=== PATIENT | female | born 1970 | race Caucasian/White ===

== ENCOUNTER 2022-05-28 05:37 | Observation (INO) ==
[2022-05-28] MEDS ORDERED: Lactated Ringers 1000 ml BAG 1,000 ML IV SCH (06:00)
[2022-05-28] MEDS ORDERED: Famotidine IV 10 MG/ML 2 ml VIAL (20 mg) IV ONE (06:00)
[2022-05-28] MEDS ORDERED: Buffered Lidocaine 1% SYRIN 1 ml INTRADERM ONE ×2 (06:00→06:04)
[2022-05-28] MEDS ORDERED: Famotidine IV 10 MG/ML 2 ml VIAL (20 mg) ONE (06:04)
[2022-05-28] MEDS ORDERED: ceFAZolin 2 GM PREMIX 2 GM/50 ML BAG ONE (06:04)
[2022-05-28] MEDS ORDERED: ROPIVACAINE 5 MG/ML 30 ML BTL (0.5%) ONE ×2 (07:02→07:08)
[2022-05-28] MEDS ORDERED: fentaNYL 100 mcg/2 ml 50 MCG/ML VIAL ONE ×2 (07:07→07:16)
[2022-05-28] MEDS ORDERED: Lidocaine 2% PF 5 ML VIAL ONE (07:07)
[2022-05-28] MEDS ORDERED: Midazolam 5 mg/5 ml VIAL 1 mg/ml 5 ml VIAL (5 mg) ONE (07:07)
[2022-05-28] MEDS ORDERED: Propofol 10 MG/ML 20 ML BTL ONE ×2 (08:11→09:15)
[2022-05-28] MEDS ORDERED: Dexamethasone IV 4 MG/ML VIAL 1 ml VIAL ONE (08:36)
[2022-05-28] MEDS ORDERED: Ondansetron 4 mg VIAL 2 MG/ML 2 ml VIAL ONE (08:36)
[2022-05-28] MEDS ORDERED: Lactulose 30 ml UDC PO PRN (09:09)
[2022-05-28] MEDS ORDERED: Magnesium Hydroxide LIQ 30 ML UDC PO PRN (09:09)
[2022-05-28] MEDS ORDERED: Ondansetron ODT 4 mg TAB 4 MG TAB PO PRN (09:09)
[2022-05-28] MEDS ORDERED: Ondansetron 4 mg VIAL 2 MG/ML 2 ml VIAL IV PRN (09:09)
[2022-05-28] MEDS ORDERED: Morphine 2 MG/ML SYRINGE IV PRN (09:09)
[2022-05-28] MEDS ORDERED: Acetaminophen IV 1 GM/100ML 0 MG/0 ML BAG IV ONE (09:22)
[2022-05-28] MEDS ORDERED: Naloxone 0.4 mg VIAL 0.4 mg/ml 1 ml VIAL IV PRN (10:31)
[2022-05-28] MEDS ORDERED: fentaNYL 100 mcg/2 ml 50 MCG/ML VIAL IV PRN (10:31)
[2022-05-28] MEDS ORDERED: Dextrose 50% Syringe 50 ml 25 GM/50 ML SYRINGE IV PUSH PRN (11:08)
[2022-05-28] MEDS: Lactated Ringers 1000 ml BAG 1,000 ML IV SCH ×2 (12:40→23:03)
[2022-05-28] MEDS: ceFAZolin 1 GM ADVAN 1 GM in NS 0.9% 50 ML 50 ML IVPB SCH (16:05)
[2022-05-28] MEDS ORDERED: Insulin GLARGINE 100 un/ml 10 ml VIAL SUBCUT SCH (21:00)
[2022-05-28] MEDS: Magnesium Hydroxide LIQ 30 ML UDC PO SCH (21:17)
[2022-05-29] MEDS: ceFAZolin 1 GM ADVAN 1 GM in NS 0.9% 50 ML 50 ML IVPB SCH ×2 (00:14→08:06)
[2022-05-29 06:00] LABS: Hematocrit 31 % (35-47); Hemoglobin 10.3 g/dL (12.0-16.0); Mean Platelet Volume 8.1 fL (7.4-10.4); Platelet Count 204 10^3/uL (150-450)
[2022-05-29 06:29] LABS: Calcium 8.9 mg/dL (8.6-10.3); Potassium 4.6 mmol/L (3.5-5.0); eGFR CKD-EPI 104.8 (>60)
[2022-05-29] MEDS: Magnesium Hydroxide LIQ 30 ML UDC PO SCH (08:08)
[2022-05-29] MEDS ORDERED: Vitamin THERAPEUTIC TAB PO SCH (09:00)
[2022-05-29 11:29] VITALS: BP 111/60
== END 2022-05-29 12:15 | disposition home or self-care (01) ==
LOC: SSU → AA 05:37 → INTOOBSV 05:37
PROVIDERS: ADMIT Orthopaedic Surgery Adult Reconstructive Orthopaedic Surgery; ATTEND Orthopaedic Surgery Adult Reconstructive Orthopaedic Surgery

== ENCOUNTER 2024-03-15 05:34 | Observation (INO) ==
[~2024-03-15 05:34] MED LIST: NS 0.45% 1000 ml BAG 1,000 ML IV SCH; Naloxone 0.4 mg VIAL 0.4 mg/ml 1 ml VIAL IV PRN; Ondansetron 4 mg VIAL 2 MG/ML 2 ml VIAL IV PRN; fentaNYL 100 mcg/2 ml 50 MCG/ML VIAL IV PRN
[2024-03-15] MEDS: Buffered Lidocaine 1% SYRIN 1 ml INTRADERM ONE (06:00)
[2024-03-15] MEDS ORDERED: Tranexamic Acid 1 GM/100ML BAG 2,000 MG/200 ML BAG IV ONE (06:05)
[2024-03-15] MEDS ORDERED: Scopolamine 1 mg/72hr PATCH ONE (06:05)
[2024-03-15] MEDS ORDERED: ceFAZolin 2 GM PREMIX 2 GM/50 ML BAG ONE (06:05)
[2024-03-15] MEDS: Scopolamine 1 mg/72hr PATCH TRANSDERM ONE (06:26)
[2024-03-15 06:32] LABS: Rapid COVID-19 Molecular Undetected (Undetected)
[2024-03-15] MEDS ORDERED: Dexamethasone IV 4 MG/ML VIAL 1 ml VIAL ONE (06:47)
[2024-03-15] MEDS ORDERED: ROPIVACAINE 5 MG/ML 30 ML BTL (0.5%) ONE ×2 (06:47→06:52)
[2024-03-15] MEDS ORDERED: Midazolam 5 mg/ml concentrated 5 mg/ml 1 ml VIAL ONE (06:47)
[2024-03-15] MEDS: Lactated Ringers 1000 ml BAG 1,000 ML IV SCH ×2 (07:20→12:09)
[2024-03-15] MEDS ORDERED: Propofol 10 MG/ML 20 ML BTL ONE ×3 (07:42→09:47)
[2024-03-15] MEDS ORDERED: Lidocaine 2% PF 5 ML VIAL ONE (07:45)
[2024-03-15] MEDS ORDERED: Phenylephrine IV 10 MG/ML 1 ml VIAL ONE (07:51)
[2024-03-15] MEDS ORDERED: Lactulose 30 ml UDC PO PRN (10:16)
[2024-03-15] MEDS ORDERED: Ondansetron 4 mg VIAL 2 MG/ML 2 ml VIAL IV PRN (10:16)
[2024-03-15] MEDS ORDERED: Magnesium Hydroxide LIQ 30 ML UDC PO PRN (10:16)
[2024-03-15] MEDS ORDERED: Calcium Carb (TUMS) 500 mg CHEW TAB PO PRN (10:16)
[2024-03-15] MEDS ORDERED: Morphine 2 MG/ML SYRINGE IV PRN (10:16)
[2024-03-15] MEDS ORDERED: Ondansetron ODT 4 mg TAB 4 MG TAB PO PRN (10:16)
[2024-03-15] MEDS: Acetaminophen IV 1 GM/100ML 1,000 MG/100 ML BAG IV ONE (12:34)
[2024-03-15] MEDS: ceFAZolin 2 GM PREMIX 2 GM/50 ML BAG IV SCH (16:04)
[2024-03-15 17:39] VITALS: BP 148/97
[2024-03-15] MEDS ORDERED: Magnesium Hydroxide LIQ 30 ML UDC PO SCH (21:00)
[2024-03-16] MEDS ORDERED: Vitamin THERAPEUTIC TAB PO SCH (09:00)
== END 2024-03-15 17:18 | disposition home or self-care (01) ==
LOC: OR 05:34 → SSU 05:34
PROVIDERS: ADMIT Orthopaedic Surgery Adult Reconstructive Orthopaedic Surgery; ATTEND Orthopaedic Surgery Adult Reconstructive Orthopaedic Surgery